=== PATIENT | male | born 1990 | race Hispanic/Latino ===

== ENCOUNTER 2018-12-21 16:58 | Emergency (ER) | payer MEDICAID ==
--- NOTE | 2018-12-21 17:07 | Emergency Department Report ---
ED Psych HPI - General Stated Complaint: SUICIDAL THOUGHTS Time Seen by Provider: 12/21/18 17:05 Source: patient, EMS Mode of arrival: Ambulatory Limitations: No Limitations - History of Present Illness Initial Comments: Patient is a 28-year-old male presents emergency room with suicidal ideations and suicide attempt by punching a TV. States he wants to . Patient states he was trying to kill himself. Patient complains of depression. Patient denies audiovisual hallucinations. MD Complaint: suicidal ideation, feels depressed -: Sudden Associated Psychiatric Symptoms: depression, suicidal ideation History of same: Yes Quality: constant Improves With: none Worsens With: none Associated Symptoms: denies: confusion, headache, shortness of breath, nausea, vomiting, syncope, insomnia Treatments Prior to Arrival: placed on mental he If Self Harm: admits thoughts of, has plan, has acted on plan - Related Data Allergies Allergy/AdvReac Type Severity Reaction Status Date / Time clonidine Allergy Unknown Anaphylaxis Verified 12/21/18 17:14 risperidone [From Risperdal] Allergy Unknown Anaphylaxis Verified 12/21/18 17:14 ED Review of Systems ROS: Stated complaint: SUICIDAL THOUGHTS Other details as noted in HPI Constitutional: denies: chills, fever Eyes: denies: eye pain, eye discharge, vision change ENT: denies: ear pain, throat pain Respiratory: denies: cough, shortness of breath, wheezing Cardiovascular: denies: chest pain, palpitations Endocrine: no symptoms reported Gastrointestinal: denies: abdominal pain, nausea, diarrhea Genitourinary: denies: urgency, dysuria Musculoskeletal: denies: back pain, joint swelling, arthralgia Skin: denies: rash, lesions Neurological: denies: headache, weakness, paresthesias Psychiatric: suicidal thoughts. denies: anxiety, depression, auditory hallucinations, visual hallucinations, homicidal thoughts Hematological/Lymphatic: denies: easy bleeding, easy bruising ED Past Medical Hx - Past Medical History Previous Medical History?: Yes Hx Psychiatric Treatment: Yes - Surgical History Past Surgical History?: No - Family History Family history: no significant - Social History Smoking Status: Never Smoker Substance Use Type: None ED Physical Exam - General Limitations: No Limitations General appearance: alert, in no apparent distress - Head Head exam: Present: atraumatic, normocephalic - Eye Eye exam: Present: normal appearance - ENT ENT exam: Present: mucous membranes moist - Neck Neck exam: Present: normal inspection - Respiratory Respiratory exam: Present: normal lung sounds bilaterally. Absent: respiratory distress - Cardiovascular Cardiovascular Exam: Present: regular rate, normal rhythm. Absent: systolic murmur, diastolic murmur, rubs, gallop - GI/Abdominal GI/Abdominal exam: Present: soft, normal bowel sounds - Rectal Rectal exam: Present: deferred - Extremities Exam Extremities exam: Present: normal inspection - Back Exam Back exam: Present: normal inspection - Neurological Exam Neurological exam: Present: alert, oriented X3 - Psychiatric Psychiatric exam: Present: flat affect, suicidal ideation - Skin Skin exam: Present: warm, dry, intact, normal color. Absent: rash ED Course Vital Signs 12/21/18 17:15 Temperature 98.9 F Pulse Rate 94 H Respiratory 18 Rate Blood Pressure 128/93 [Left] O2 Sat by Pulse 98 Oximetry - Reevaluation(s) Reevaluation #1: Patient placed on 1013. 12/21/18 17:10 Reevaluation #2: Discussed all results with patient. Patient is medically cleared and will remain in the ER on 1013 and until accepted to appropriate psychiatric facility. Patient agrees to plan of care. 12/21/18 18:51 ED Medical Decision Making - Lab Data Result diagrams: 12/21/18 17:53 12/21/18 17:53 - Medical Decision Making Patient is a 28-year-old male presents to emergency room with complaints of suicidal ideation and suicidal attempt. Patient attempted to take his life by cutting his hand with a TV. Patient is medically clear. Patient had labs done. Patient will remain in the ER on 1013. - Differential Diagnosis suicide attempt. Cutting. Suicidal ideation. Depression. Critical care attestation.: If time is entered above; I have spent that time in minutes in the direct care of this critically ill patient, excluding procedure time. ED Disposition Clinical Impression: Suicidal ideations, Suicidal behavior with attempted self-injury Depressed Qualifiers: Depression Type: unspecified Qualified Code(s): F32.9 - Major depressive disorder, single episode, unspecified Disposition: DC/TX-65 PSY HOSP/PSY UNIT Is pt being admited?: No Does the pt Need Aspirin: No Condition: Stable Additional Instructions: Patient is medically cleared Time of Disposition: 18:54
[2018-12-21 18:28] LABS: Basophils % (Auto) 0.9 % (0.0-1.8); Eosinophils # (Auto) 0.2 K/mm3 (0.0-0.4); Eosinophils % (Auto) 3.8 % (0.0-4.3); Hemoglobin 13.3 gm/dl (11.8-15.2); Lymphocytes # (Auto) 1.5 K/mm3 (1.2-5.4); Lymphocytes % (Auto) 30.2 % (13.4-35.0); Mean Corpuscular HGB Conc 35 % (32-34); Mean Corpuscular Volume 93 fl (84-94); Monocytes # (Auto) 0.7 K/mm3 (0.0-0.8); Monocytes % (Auto) 14.5 % (0.0-7.3); Platelet Count 183 K/mm3 (140-440); Red Blood Count 4.08 M/mm3 (3.65-5.03); Red Cell Distribution Width 13.1 % (13.2-15.2)
[2018-12-21 18:38] LABS: Alanine Aminotransferase 25 units/L (7-56); Albumin 4.5 g/dL (3.9-5); BUN/Creatinine Ratio 17; Blood Urea Nitrogen 17 mg/dL (9-20); Calcium 9.3 mg/dL (8.4-10.2); Hemolysis Index 4
[2018-12-21 19:04] LABS: Bilirubin,Urine NEG (Negative); Blood,Urine NEG (Negative); Color,Urine Yellow (Yellow); Mucus,Urine FEW /HPF; Protein,Urine <15 mg/dL mg/dL (Negative); Urobilinogen,Urine < 2.0 mg/dL (<2.0)
[2018-12-21 19:08] LABS: WBC,Urine < 1.0 /HPF (0.0-6.0)
[2018-12-21 19:13] LABS: Amphetamine Screen,Urine PRESUMPTIVE NEGATIVE; Benzodiazepines Screen,Urine PRESUMPTIVE NEGATIVE; Cannabinoid Screen,Urine PRESUMPTIVE NEGATIVE; Cocaine Screen,Urine PRESUMPTIVE NEGATIVE; Methadone Screen,Urine PRESUMPTIVE NEGATIVE; Opiate Screen,Urine PRESUMPTIVE NEGATIVE
[2018-12-21] MEDS: COLACE PO SCH (22:00)
[2018-12-21] MEDS ORDERED: NON-FORMULARY (Olanzapine [Zyprexa] 20 MG) PO SCH (22:00)
[2018-12-21] MEDS: NALTREXONE HCL 50 MG PO SCH (22:00)
[2018-12-21] MEDS: INDERAL PO SCH (22:24)
[2018-12-21] MEDS: THORAZINE PO SCH (22:24)
[2018-12-22] MEDS: NALTREXONE HCL 50 MG PO SCH ×2 (09:37→23:05)
[2018-12-22] MEDS: THORAZINE PO SCH (09:41)
[2018-12-22] MEDS: COLACE PO SCH ×2 (09:41→23:00)
[2018-12-22] MEDS: PAXIL PO SCH (09:41)
[2018-12-22] MEDS: INDERAL PO SCH ×2 (09:41→23:05)
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
[2018-12-22] MEDS ORDERED: THORAZINE PO SCH (18:18)
[2018-12-23] MEDS ORDERED: ATIVAN IM PRN (00:45)
[2018-12-23] MEDS ORDERED: BENADRYL IM PRN (00:45)
[2018-12-23] MEDS ORDERED: HALDOL IM PRN (00:45)
--- NOTE | 2018-12-23 09:51 | Progress Note ---
Subjective - Reason for Consult Consult date: 12/23/18 Reason for consult: Psychiatry Follow-up - Chief Complaint Chief complaint: "The patient isn't cooperating" 28 y.o. white male who presented to the ER for making suicidal and homicidal threats. Today the patient would not cooperate during the assessment. I the provider will attempt to assess the patient in 24 hours. Mental Status Exam - Vital signs Last Vital Signs Temp 98.3 F 12/23/18 07:58 Pulse 64 12/23/18 07:58 Resp 16 12/23/18 07:58 BP 108/79 12/23/18 07:58 Pulse Ox 98 12/23/18 07:58 - Exam Narrative exam: unable to complete the MSE because the patient would not cooperate. Assessment and Plan Impression: Hx of Schizoaffective DO. Developmental Delay? Today the patient would not cooperate during the assessment. DDx: Bipolar DO, PTSD Recommendations/Plan: Continue 1013 and home medications Zyprexa 20 mg PO HS for mood/psychosis, Paxil 10 mg PO for depression, and Propanolol 40 mg PO BID for tremors. Gather collateral information. Dispo: Once collateral information is gathered, proper dispo will be determined. Will staff with Dr. Collin Ball
[2018-12-23] MEDS: COLACE PO SCH (13:11)
[2018-12-23] MEDS: PAXIL PO SCH (13:12)
[2018-12-23] MEDS: INDERAL PO SCH (13:16)
[2018-12-23 14:04] VITALS: BP 130/89
== END 2018-12-23 17:02 ==
LOC: EEVIPCON 16:58 → ED 16:58
DX: S61.031A Puncture wound without foreign body of right thumb without damage to nail, initial encounter (principal); F32.9 Major depressive disorder, single episode, unspecified; Z88.8 Allergy status to other drugs, medicaments and biological substances; X78.8XXA Intentional self-harm by other sharp object, initial encounter; Y93.89 Activity, other specified; Y92.89 Other specified places as the place of occurrence of the external cause; Y99.8 Other external cause status
CPT/HCPCS: 36415; 80053; 80307; 81001; 85025; 96372; 99285; G0480; J1200; J2060; 80320; Q0161

== ENCOUNTER 2019-01-17 14:34 | Emergency (ER) | payer MEDICAID ==
--- NOTE | 2019-01-17 16:34 | Emergency Department Report ---
HPI - General Chief Complaint: Head Injury Time Seen by Provider: 01/17/19 16:19 - HPI HPI: Room 17 The patient is a 28-year-old male presenting with chief complaint of suicidal ideation and self-harm. Patient states she has felt suicidal for the past 3 days denies any active plan or attempts at harming himself. Today the patient states normal purchase headphones so intensely struck his head against a sheet rock wall 4 times. Patient denies loss of consciousness Location: [See above] Duration: [See above] Quality: [See above] Severity: [See above] Modifying factors: [see above] Context: [see above] Mode of transportation: [not driving] ED Past Medical Hx - Past Medical History Previous Medical History?: Yes Hx Hypertension: Yes Hx Psychiatric Treatment: Yes (pt states he's bipolar, schizophrenic, autistic) - Surgical History Past Surgical History?: Yes Hx Appendectomy: Yes - Family History Family history: no significant - Social History Smoking Status: Never Smoker (denies illicit drug use) Substance Use Type: None (denies illicit drug use) - Medications Home Medications: Home Medications Medication Instructions Recorded Confirmed Last Taken Type Docusate Sodium [Colace] 100 mg PO BID 12/21/18 12/21/18 12/21/18 History Naltrexone HCl 50 mg PO BID 12/21/18 12/21/18 12/21/18 History OLANZapine [Zyprexa] 20 mg PO QHS 12/21/18 12/21/18 12/21/18 History PARoxetine [Paxil] 10 mg PO DAILY 12/21/18 12/21/18 12/21/18 History Propranolol [Inderal] 40 mg PO BID 12/21/18 12/21/18 12/21/18 History chlorproMAZINE [Thorazine] 50 mg PO BID 12/21/18 12/21/18 12/21/18 History ED Review of Systems ROS: Stated complaint: MH EVAL Other details as noted in HPI Constitutional: no symptoms reported Eyes: denies: eye pain ENT: denies: throat pain Respiratory: no symptoms reported Cardiovascular: denies: chest pain Endocrine: no symptoms reported Gastrointestinal: denies: abdominal pain Genitourinary: denies: dysuria Musculoskeletal: denies: back pain Neurological: headache Psychiatric: suicidal thoughts Physical Exam - Physical Exam Vital Signs: Vital Signs 01/17/19 15:07 Temperature 98.3 F Pulse Rate 63 Respiratory 16 Rate Blood Pressure 117/65 Blood Pressure 117/65 [Left] O2 Sat by Pulse 98 Oximetry Physical Exam: GENERAL: The patient is well-developed well-nourished []. [] HEENT: Normocephalic. Minor abrasion to the upper mid forehead. Extraocular motions are intact. Patient has moist mucous membranes. NECK: Supple. Trachea midline CHEST/LUNGS: Clear to auscultation. There is no respiratory distress noted. HEART/CARDIOVASCULAR: Regular. There is no tachycardia. There is no gallop rub or murmur. ABDOMEN: Abdomen is soft, nontender. Patient has normal bowel sounds. There is no abdominal distention. SKIN: There is no diaphoresis. NEURO: The patient is awake, alert, and oriented. The patient is cooperative. The patient has no focal neurologic deficits. The patient has normal speech. Cranial nerves II through XII grossly intact, no drift MUSCULOSKELETAL: There is no evidence of acute injury. ED Course Vital Signs 01/17/19 15:07 Temperature 98.3 F Pulse Rate 63 Respiratory 16 Rate Blood Pressure 117/65 Blood Pressure 117/65 [Left] O2 Sat by Pulse 98 Oximetry ED Medical Decision Making - Lab Data Result diagrams: 01/17/19 16:39 01/17/19 16:39 Laboratory Tests 01/17/19 01/17/19 01/17/19 16:39 16:39 16:39 WBC 7.9 RBC 4.44 Hgb 14.0 Hct 41.0 MCV 92 MCH 32 MCHC 34 RDW 13.3 Plt Count 346 Lymph % (Auto) 23.0 [place] % (Auto) 10.5 H Eos % (Auto) 1.8 Baso % (Auto) 0.6 Lymph # 1.8 [place] # 0.8 Eos # 0.1 Baso # 0.0 Seg Neutrophils % 64.1 Seg Neutrophils # 5.0 Sodium 140 Potassium 3.8 Chloride 99.0 Carbon Dioxide 28 Anion Gap 17 BUN 15 Creatinine 0.7 L Estimated GFR > 60 BUN/Creatinine Ratio 21 Glucose 133 H Hemoglobin A1c Calcium 9.4 Total Bilirubin 0.30 AST 22 ALT 20 Alkaline Phosphatase 86 Total Protein 8.1 Albumin 4.4 Albumin/Globulin Ratio 1.2 Triglycerides Cholesterol LDL Cholesterol Direct HDL Cholesterol Cholesterol/HDL Ratio Amylase Lipase Urine Color Urine Turbidity Urine pH Ur Specific [place] Urine Protein Urine Glucose (UA) Urine Ketones Urine Blood Urine Nitrite Urine Bilirubin Urine Urobilinogen Ur Leukocyte Esterase Urine WBC (Auto) Urine RBC (Auto) Hyaline Casts Urine Mucus Salicylates < 0.3 L Urine Opiates Screen Urine Methadone Screen Acetaminophen Ur Barbiturates Screen Valproic Acid Ur Phencyclidine Scrn Ur Amphetamines Screen U Benzodiazepines Scrn Urine Cocaine Screen U Marijuana (THC) Screen Drugs of Abuse Note Plasma/Serum Alcohol 01/17/19 01/17/19 01/17/19 16:39 16:39 16:39 WBC RBC Hgb Hct MCV MCH MCHC RDW Plt Count Lymph % (Auto) [place] % (Auto) Eos % (Auto) Baso % (Auto) Lymph # [place] # Eos # Baso # Seg Neutrophils % Seg Neutrophils # Sodium Potassium Chloride Carbon Dioxide Anion Gap BUN Creatinine Estimated GFR BUN/Creatinine Ratio Glucose Hemoglobin A1c Calcium Total Bilirubin AST 23 ALT 19 Alkaline Phosphatase 83 Total Protein Albumin Albumin/Globulin Ratio Triglycerides Cholesterol LDL Cholesterol Direct HDL Cholesterol Cholesterol/HDL Ratio Amylase 84 Lipase 57 Urine Color Urine Turbidity Urine pH Ur Specific [place] Urine Protein Urine Glucose (UA) Urine Ketones Urine Blood Urine Nitrite Urine Bilirubin Urine Urobilinogen Ur Leukocyte Esterase Urine WBC (Auto) Urine RBC (Auto) Hyaline Casts Urine Mucus Salicylates Urine Opiates Screen Urine Methadone Screen Acetaminophen < 5.0 L Ur Barbiturates Screen Valproic Acid Ur Phencyclidine Scrn Ur Amphetamines Screen U Benzodiazepines Scrn Urine Cocaine Screen U Marijuana (THC) Screen Drugs of Abuse Note Plasma/Serum Alcohol < 0.01 01/17/19 01/17/19 01/17/19 16:39 16:39 16:39 WBC RBC Hgb Hct MCV MCH MCHC RDW Plt Count Lymph % (Auto) [place] % (Auto) Eos % (Auto) Baso % (Auto) Lymph # [place] # Eos # Baso # Seg Neutrophils % Seg Neutrophils # Sodium Potassium Chloride Carbon Dioxide Anion Gap BUN Creatinine Estimated GFR BUN/Creatinine Ratio Glucose Hemoglobin A1c 4.9 Calcium Total Bilirubin AST ALT Alkaline Phosphatase Total Protein Albumin Albumin/Globulin Ratio Triglycerides 97 Cholesterol 143 LDL Cholesterol Direct 84 HDL Cholesterol 49 Cholesterol/HDL Ratio 2.91 Amylase Lipase Urine Color Urine Turbidity Urine pH Ur Specific [place] Urine Protein Urine Glucose (UA) Urine Ketones Urine Blood Urine Nitrite Urine Bilirubin Urine Urobilinogen Ur Leukocyte Esterase Urine WBC (Auto) Urine RBC (Auto) Hyaline Casts Urine Mucus Salicylates Urine Opiates Screen Urine Methadone Screen Acetaminophen Ur Barbiturates Screen Valproic Acid 67.9 Ur Phencyclidine Scrn Ur Amphetamines Screen U Benzodiazepines Scrn Urine Cocaine Screen U Marijuana (THC) Screen Drugs of Abuse Note Plasma/Serum Alcohol 01/17/19 01/17/19 16:48 16:48 WBC RBC Hgb Hct MCV MCH MCHC RDW Plt Count Lymph % (Auto) [place] % (Auto) Eos % (Auto) Baso % (Auto) Lymph # [place] # Eos # Baso # Seg Neutrophils % Seg Neutrophils # Sodium Potassium Chloride Carbon Dioxide Anion Gap BUN Creatinine Estimated GFR BUN/Creatinine Ratio Glucose Hemoglobin A1c Calcium Total Bilirubin AST ALT Alkaline Phosphatase Total Protein Albumin Albumin/Globulin Ratio Triglycerides Cholesterol LDL Cholesterol Direct HDL Cholesterol Cholesterol/HDL Ratio Amylase Lipase Urine Color Yellow Urine Turbidity Clear Urine pH 6.0 Ur Specific [place] 1.017 Urine Protein <15 mg/dl Urine Glucose (UA) Neg Urine Ketones Tr Urine Blood Neg Urine Nitrite Neg Urine Bilirubin Neg Urine Urobilinogen < 2.0 Ur Leukocyte Esterase Neg Urine WBC (Auto) < 1.0 Urine RBC (Auto) 2.0 Hyaline Casts 2 Urine Mucus Few Salicylates Urine Opiates Screen Presumptive negative Urine Methadone Screen Presumptive negative Acetaminophen Ur Barbiturates Screen Presumptive negative Valproic Acid Ur Phencyclidine Scrn Presumptive negative Ur Amphetamines Screen Presumptive negative U Benzodiazepines Scrn Presumptive negative Urine Cocaine Screen Presumptive negative U Marijuana (THC) Screen Presumptive negative Drugs of Abuse Note Disclamer Plasma/Serum Alcohol - Radiology Data Radiology results: report reviewed (CT head), image reviewed (CT head) [facility] [address] [place] [address] Cat Scan Report Signed Patient: EZEQUIEL DOCKERY MR#: [id number] 7 : 1990 Acct:[id number] Age/Sex: 28 / M ADM Date: 01/17/19 Loc: ED Attending Dr: Ordering Physician: VALERI COLE MD Date of Service: 01/17/19 Procedure(s): CT head/brain wo con Accession Number(s): [id number] cc: VALERI COLE MD CT head without contrast CLINICAL HISTORY: Headache, trauma. FINDINGS: No previous exams are available for comparison. The brain appears to demonstrate appropriate attenuation. There is asymmetry of the lateral ventricles which is more prominent on the right. The findings would appear to be developmental without CT evidence of obstructing lesions at. There is no clear CT evidence of acute intracranial hemorrhage or significant mass effect. There is focal opacification within the left sphenoid sinus. All CT scans at this location are performed using the CT dose reduction for ALARA by means of automated exposure control. IMPRESSION: Is no CT ends of acute intracranial process. There is focal opacification within the left sphenoid sinus. Signer Name: Edwar Thapa MD Signed: 01/17/2019 5:49 PM Workstation Name: [id number] Transcribed By: MR Dictated By: Edwar Thapa MD Electronically Authenticated By: Edwar Thapa MD Signed Date/Time: 01/17/191748 DD/ 44 TD/TT: - Differential Diagnosis closed head injury, ICH, suicidal ideation Critical care attestation.: If time is entered above; I have spent that time in minutes in the direct care of this critically ill patient, excluding procedure time. ED Disposition Clinical Impression: Suicidal ideation, Closed head injury Disposition: DC/TX-65 PSY HOSP/PSY UNIT Is pt being admited?: No Does the pt Need Aspirin: No Condition: Serious Referrals: PRIMARY CARE, [Primary Care Provider] - 3-5 Days Time of Disposition: 18:15 (awaiting acceptance)
[2019-01-17 16:56] LABS: Basophils % (Auto) 0.6 % (0.0-1.8); Eosinophils # (Auto) 0.1 K/mm3 (0.0-0.4); Eosinophils % (Auto) 1.8 % (0.0-4.3); Lymphocytes # (Auto) 1.8 K/mm3 (1.2-5.4); Mean Corpuscular HGB Conc 34 % (32-34); Mean Corpuscular Volume 92 fl (84-94); Monocytes # (Auto) 0.8 K/mm3 (0.0-0.8); Monocytes % (Auto) 10.5 % (0.0-7.3); Platelet Count 346 K/mm3 (140-440); Red Blood Count 4.44 M/mm3 (3.65-5.03); Red Cell Distribution Width 13.3 % (13.2-15.2)
[2019-01-17 17:05] LABS: Bilirubin,Urine NEG (Negative); Blood,Urine NEG (Negative); Color,Urine Yellow (Yellow); Hyaline Casts,Urine 2 /LPF; Mucus,Urine FEW /HPF; Protein,Urine <15 mg/dL mg/dL (Negative); Urobilinogen,Urine < 2.0 mg/dL (<2.0); WBC,Urine < 1.0 /HPF (0.0-6.0)
[2019-01-17 17:06] LABS: Amphetamine Screen,Urine PRESUMPTIVE NEGATIVE; Benzodiazepines Screen,Urine PRESUMPTIVE NEGATIVE; Cannabinoid Screen,Urine PRESUMPTIVE NEGATIVE; Cocaine Screen,Urine PRESUMPTIVE NEGATIVE; Methadone Screen,Urine PRESUMPTIVE NEGATIVE; Opiate Screen,Urine PRESUMPTIVE NEGATIVE
[2019-01-17 17:19] LABS: Alanine Aminotransferase 20 units/L (7-56); Albumin 4.4 g/dL (3.9-5); BUN/Creatinine Ratio 21; Blood Urea Nitrogen 15 mg/dL (9-20); Calcium 9.4 mg/dL (8.4-10.2); Hemolysis Index 12
--- NOTE | 2019-01-17 17:24 | Consultation ---
History of Present Illness - Reason for Consult Consult date: 01/17/19 Reason for consult: Mental Health Evaluation Requesting physician: VALERI COLE - Chief Complaint Chief complaint: "I was upset at something" - History of Present Psychiatric Illness 28 y.o. white male who presented to the ER for self ham behavior. This patient is known to me. Today the patient was calm during the assessment. The patient has a hx of intellectual disability. He is known to have impulsive behavior. The patient was brought to the ER for banging his head on the wall at his retirement. He stated that he got upset about "something" and proceeding to bang his head on the wall. He would not confirm or deny if he was trying to kill himself when asked. He stated that he take Zyprexa and Depakote when asked about psy medication. Overall, his insight is limited to poor. No gestures of SI/HI's. Medications and Allergies Allergies Allergy/AdvReac Type Severity Reaction Status Date / Time clonidine Allergy Unknown Anaphylaxis Verified 12/21/18 17:14 risperidone [From Risperdal] Allergy Unknown Anaphylaxis Verified 12/21/18 17:14 Home Medications Medication Instructions Recorded Confirmed Last Taken Type Docusate Sodium [Colace] 100 mg PO BID 12/21/18 12/21/18 12/21/18 History Naltrexone HCl 50 mg PO BID 12/21/18 12/21/18 12/21/18 History OLANZapine [Zyprexa] 20 mg PO QHS 12/21/18 12/21/18 12/21/18 History PARoxetine [Paxil] 10 mg PO DAILY 12/21/18 12/21/18 12/21/18 History Propranolol [Inderal] 40 mg PO BID 12/21/18 12/21/18 12/21/18 History chlorproMAZINE [Thorazine] 50 mg PO BID 12/21/18 12/21/18 12/21/18 History Mental Status Exam - Vital signs Last Vital Signs Temp 98.4 F 01/17/19 15:07 Pulse 63 01/17/19 15:07 Resp 16 01/17/19 15:07 BP 117/65 01/17/19 15:07 Pulse Ox 98 01/17/19 15:07 - Exam Narrative exam: MSE: Appearance: calm Behavior: regular eye contact Speech: regular rate and tone Mood: "okay" Affect: congruent to mood Thought Process: unable to assess Thought Content: no gestures of SI/HI's Motor Activity: ambulatory Cognition: A/O x 3 Insight: limited to poor Judgment: poor Results Result Diagrams: 01/17/19 16:39 01/17/19 16:39 Abnormal lab results 01/17/19 01/17/19 01/17/19 Range/Units 16:39 16:39 16:39 [place] % (Auto) 10.5 H (0.0-7.3) % Creatinine 0.7 L (0.8-1.5) mg/dL Glucose 133 H (75-100) mg/dL Salicylates < 0.3 L (2.8-20.0) mg/dL Acetaminophen (10.0-30.0) ug/mL 01/17/19 Range/Units 16:39 [place] % (Auto) (0.0-7.3) % Creatinine (0.8-1.5) mg/dL Glucose (75-100) mg/dL Salicylates (2.8-20.0) mg/dL Acetaminophen < 5.0 L (10.0-30.0) ug/mL All other labs normal. Assessment and Plan Assessment and plan: mpression: Unspecified Mood DO. Unspecified Intellectual Disability. Today the patient was calm during the assessment. DDx: Bipolar DO, SCAD, MDD Recommendations/Plan: Continue 1013 and gather collateral information. Start home medications Zyprexa 5 mg PO HS for mood and Depakote 500 mg PO BID for mood. Attempted to discuss possible metabolic side effects of Zyprexa with the patient. Dispo: Once collateral information is gathered, proper dispo will be determined. Staffed with Dr. Collin Ball
--- NOTE | 2019-01-17 17:53 | Cat Scan Report ---
CT head without contrast CLINICAL HISTORY: Headache, trauma. FINDINGS: No previous exams are available for comparison. The brain appears to demonstrate appropriat e attenuation. There is asymmetry of the lateral ventricles which is more prominent on the right. The findings would appear to be developmental without CT evidence of obstructing lesions at. There is no clear CT evidence of acute intracranial hemorrhage or significant mass effect. There is focal opacif ication within the left sphenoid sinus. All CT scans at this location are performed using the CT dose reduction for Bla[place] by means of automated exposure control. IMPRESSION: Is no CT ends of acute intracranial process. There is focal opacification within the left sphenoid sinus. Signer Name: Edwar Thapa MD Signed: 01/17/2019 5:49 PM Workstation Name: [id number]
[2019-01-17 18:02] LABS: Alanine Aminotransferase 19 units/L (7-56)
[2019-01-17 18:03] LABS: Chol/HDL Ratio 2.91 %
[2019-01-17] MEDS ORDERED: GEODON IM ONE ×2 (20:32→20:35)
[2019-01-17] MEDS ORDERED: WATER FOR INJ Sterile (PF) IM ONE (20:36)
--- NOTE | 2019-01-18 08:13 | Progress Note ---
Subjective - Reason for Consult Consult date: 01/18/19 Reason for consult: Psychiatry Follow-up - Chief Complaint Chief complaint: "I am okay" 28 y.o. white male who presented to the ER for self harming behavior. This patient is known to me. Today the patient was calm during the assessment. The patient stated that he had a "good night." He denies SI/HI's. Per the record, no behavioral disturbances overnight. No indications of side effects from his med ication. Mental Status Exam - Vital signs Last Vital Signs Temp 98.1 F 01/18/19 03:00 Pulse 70 01/18/19 03:00 Resp 18 01/18/19 03:00 BP 105/56 01/18/19 03:00 Pulse Ox 97 01/18/19 03:00 - Exam Narrative exam: MSE: Appearance: calm Behavior: regular eye contact Speech: regular rate and tone Mood: "okay" Affect: congruent to mood Thought Process: somewhat circumstantial Thought Content: denies SI/HI's and AVH's Motor Activity: ambulatory Cognition: A/O x 3 Insight: variable Judgment: variable to fair Assessment and Plan mpression: Unspecified Mood DO. Unspecified Intellectual Disability. Today the patient was calm during the assessment. DDx: Bipolar DO, SCAD, MDD Recommendations/Plan: Reevaluate the patient's 1013 in 24 hours. Continue Zyprexa 5 mg PO HS for mood and Depakote 500 mg PO BID for mood. Attempted to discuss possible metabolic side effects of Zyprexa with the patient. Dispo: Once collateral information is gathered, proper dispo will be determined. Will staff with Dr. Collin Ball
--- NOTE | 2019-01-19 21:05 | Progress Note ---
Subjective - Reason for Consult Consult date: 01/19/19 Reason for consult: follow up - Chief Complaint Chief complaint: "Can I go?" 28 y.o. white male who presented to the ER for self harming behavior. This patient is known to me. Today the patient was calm during the assessment. He denies SI/HI's. Per the record, no behavioral disturbances overnight. No indications of side effects from his medication. He was banging his head because he did not get what he wanted. He says he is unsure if he can return to where he was staying. Mental Status Exam - Vital signs Last Vital Signs Temp 98.4 F 01/19/19 20:00 Pulse 98 H 01/19/19 20:00 Resp 18 01/19/19 20:00 BP 126/84 01/19/19 20:00 Pulse Ox 97 01/19/19 20:00 - Exam Narrative exam: MSE: Appearance: calm Behavior: regular eye contact Speech: regular rate and tone Mood: "okay" Affect: congruent to mood Thought Process: circumstantial Thought Content: denies SI/HI's and AVH's Motor Activity: ambulatory Cognition: A/O x 3 Insight: variable Judgment: variable to fair Assessment and Plan Impression: Unspecified Mood DO. Unspecified Intellectual Disability. Today the patient was calm during the assessment. DDx: Bipolar DO, SCAD, MDD Recommendations/Plan: Reevaluate the patient's 1013 in 24 hours. Continue Zyprexa 5 mg PO HS for mood and Depakote 500 mg PO BID for mood. Attempted to discuss possible metabolic side effects of Zyprexa with the patient. 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 Will staff with Dr. Collin Ball
--- NOTE | 2019-01-20 08:02 | Progress Note ---
Subjective - Reason for Consult Consult date: 01/20/19 Reason for consult: Psychiatry Follow-up - Chief Complaint Chief complaint: "Hello" 28 y.o. white male who presented to the ER for self harming behavior. This patient is known to me. Today the patient was calm and cooperative during the assessment. Per the record, the patient have been pleasant since his arrival to the ER. He denies SI/HI's and AVH's. No indications of side effects from his medication. The patient isn't sure if he can return back to his current residence. Mental Status Exam - Vital signs Last Vital Signs Temp 98.2 F 01/20/19 01:58 Pulse 80 01/20/19 01:58 Resp 16 01/20/19 01:58 BP 133/68 01/20/19 01:58 Pulse Ox 100 01/20/19 01:58 - Exam Narrative exam: MSE: Appearance: calm, cooperative Behavior: regular eye contact Speech: regular rate and tone Mood: "okay" Affect: congruent to mood Thought Process: circumstantial Thought Content: denies SI/HI's and AVH's Motor Activity: ambulatory Cognition: A/O x 3 Insight: variable Judgment: fair Assessment and Plan mpression: Unspecified Mood DO. Unspecified Intellectual Disability. The patient's action were behavioral prior to his ER visit. Today the patient was calm and cooperative during the assessment. DDx: Bipolar DO, SCAD, MDD Recommendations/Plan: Rescind 1013. Continue Zyprexa 5 mg PO HS for mood and Depakote 500 mg PO BID for mood. Attempted to discuss possible metabolic side effects of Zyprexa with the patient. Dispo: The patient can follow up with [facility] for outpatient psy services. Will staff with Dr. Collin Ball
[2019-01-20 11:26] VITALS: BP 114/84
== END 2019-01-20 16:29 | disposition home or self-care (01) ==
LOC: EEVIPCON 14:34 → ED 14:34
DX: S00.81XA Abrasion of other part of head, initial encounter (principal); F79 Unspecified intellectual disabilities; I10 Essential (primary) hypertension; R51 Headache; F25.0 Schizoaffective disorder, bipolar type; R45.851 Suicidal ideations; F84.0 Autistic disorder; Z90.49 Acquired absence of other specified parts of digestive tract; Z79.899 Other long term (current) drug therapy; Z88.8 Allergy status to other drugs, medicaments and biological substances; W22.01XA Walked into wall, initial encounter; Y93.89 Activity, other specified; Y92.89 Other specified places as the place of occurrence of the external cause; Y99.8 Other external cause status
CPT/HCPCS: 36415; 70450; 80053; 80061; 80164; 80307; 81001; 82150; 83036; 83690; 84075; 84450; 84460; 85025; 96372; 99285; J3486; 80320; G0480